=== PATIENT | female | born 1955 | race Caucasian/White ===

== ENCOUNTER 2019-04-29 22:36 | Emergency (ER) | payer OTHER ==
[~2019-04-29] VITALS: Ht 167.6 cm; Wt 83.9 kg
[2019-04-29 22:43] VITALS: Ht 167.6 cm; Wt 83.9 kg
[2019-04-30 01:02] VITALS: BP 145/60
== END 2019-04-30 01:02 | disposition home or self-care (01) ==
LOC: ED 22:36
DX: J40 Bronchitis, not specified as acute or chronic (principal)
CPT/HCPCS: J7613; J7644; Q0092